=== PATIENT | female | born 1990 ===

== ENCOUNTER 2017-08-24 16:48 | Emergency (ER) | payer OTHER ==
[2017-08-24 16:48] VITALS: BMI 21.9
[2017-08-24 17:06] VITALS: TEMP 98.1
[2017-08-24] MEDS ORDERED: Promethazine 25 MG in Sodium Chloride 0.9% 50 ML IVPB STA (17:18)
[2017-08-24] MEDS ORDERED: DiphenhydrAMINE 50 mg/ml Inj IVP STA (17:18)
[2017-08-24] MEDS ORDERED: Sodium Chloride 0.9% 1,000 ML IV STA (17:18)
--- NOTE | 2017-08-24 17:23 | ED PDOC ---
HPI: Headache Time Seen by Provider: 08/24/17 17:06 Chief Complaint (Nursing): Headache Chief Complaint (Provider): MAJOR History Per: Patient History/Exam Limitations: no limitations Onset/Duration Of Symptoms: Days (2) Additional Complaint(s): Pt reports R sided MAJOR X 2 days, not relieved with Excedrin at home, feels like typical migraine but not relieved with Excedrin. MAJOR associated with photophobia and phonophobia. Denies fever, nausea, vomiting, paresthesias, weakness. - Risk Factors SAH Risk Factors: Nest Degree Relative(s) W/SAH, Polycystic Kidney Disease, Marfan's Syndrome, Douglas-Danlos Syndrome, Neurofibromatos, Type I, Sudden Onset Of Pain , Worst Headache Of Life Past Medical History Reviewed: Nursing Documentation, Vital Signs Vital Signs: Last Vital Signs Temp 98.1 F 08/24/17 17:03 Pulse 82 08/24/17 17:03 Resp 18 08/24/17 17:03 BP 117/70 08/24/17 17:03 Pulse Ox 100 08/24/17 17:03 - Medical History PMH: Asthma, Back Problems (pinched nerve in neck), Migraine Denies: Chronic Kidney Disease - Surgical History Surgical History: - Family History Family History: States: Diabetes, Hypertension - Home Medications Home Medications: Ambulatory Orders Medication Instructions Recorded Aspirin/Acetaminophen/Caffeine 2 tab PO PRN PRN 05/21/17 [Excedrin Migraine Caplet] Ondansetron [Zofran Odt] 4 mg PO Q8H PRN #15 odt 08/24/17 oxyCODONE/Acetaminophen [Percocet 1 tab PO Q6H PRN #15 tab 08/24/17 5/325 mg Tab] - Allergies Allergies/Adverse Reactions: Allergies Allergy/AdvReac Type Severity Reaction Status Date / Time No Known Allergies Allergy Verified 05/21/17 09:10 Review of Systems Constitutional: Negative for: Fever, Chills Eyes: Positive for: Other (Photophobia). Negative for: Vision Change Cardiovascular: Negative for: Chest Pain, Palpitations Respiratory: Negative for: Cough, Shortness of Breath Gastrointestinal: Negative for: Nausea, Vomiting, Abdominal Pain, Diarrhea Musculoskeletal: Negative for: Neck Pain, Back Pain Skin: Negative for: Rash, Lesions Neurological: Positive for: Headache. Negative for: Weakness, Numbness, Incoordination, Change in Speech, Confusion, Seizures, Altered Mental Status, Dizziness Physical Exam - Reviewed Nursing Documentation Reviewed: Yes Vital Signs Reviewed: Yes - Physical Exam Appears: Positive for: Uncomfortable Head Exam: Positive for: ATRAUMATIC, NORMAL INSPECTION Skin: Positive for: Normal Color, Warm, Dry Eye Exam: Positive for: Normal appearance, EOMI, PERRL Neck: Positive for: Normal, Painless ROM, Supple Cardiovascular/Chest: Positive for: Regular Rate, Rhythm Respiratory: Positive for: Normal Breath Sounds Neurologic/Psych: Positive for: Alert, 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 Negative for: Motor/Sensory Deficits, Aphasia, Facial Droop - ECG O2 Sat by Pulse Oximetry: 100 Medical Decision Making Medical Decision Makin yo female with migraine headache. - CT head - Benadryl - Phenergan - IVF Accession No. : [id number] Patient Name / ID : NEGRO TATE / [id number] Exam Date : 08/24/2017 18:16:30 ( Approved ) Study Comment : Sex / Age : F / 27Y Creator : Nicko Mcintyre MD Dictator : Nicko Mcintyre MD Operations Intern : Packing Machine Operator : Nicko Mcintyre MD Approver2 : Report Date : 08/24/2017 18:37:03 My Comment : PROCEDURE: CT HEAD WITHOUT CONTRAST. HISTORY: R sided MAJOR COMPARISON: None available. TECHNIQUE: Axial computed tomography images were obtained through the head/brain without intravenous contrast. Radiation dose: Total exam DLP = 806.62 mGy-cm. This CT exam was performed using one or more of the following dose reduction techniques: Automated exposure control, adjustment of the mA and/or kV according to patient size, and/or use of iterative reconstruction technique. FINDINGS: HEMORRHAGE: No intracranial hemorrhage. BRAIN: Normal velasquez-white matter differentiation and density are appreciated throughout the cerebrum and cerebellum with the brainstem appearing unremarkable as well. There is no mass effect. There is no suspicious extra-axial fluid collection and the midline brain anatomy appears diffusely unremarkable. VENTRICLES: Unremarkable. No hydrocephalus. CALVARIUM: Unremarkable. PARANASAL SINUSES: Unremarkable as visualized. No significant inflammatory changes. MASTOID AIR CELLS: Unremarkable as visualized. No inflammatory changes. OTHER FINDINGS: None. IMPRESSION: Unremarkable unenhanced head CT. Disposition - Clinical Impression Clinical Impression: Acute headache - Disposition Referrals: [facility] [place] [Outside] [facility] [Outside] Keiko Lemos MD [Medical Doctor] - Disposition: Routine/Home Disposition Time: 18:45 Condition: IMPROVED Prescriptions: Ondansetron [Zofran Odt] 4 mg PO Q8H PRN #15 odt PRN Reason: Nausea/Vomiting oxyCODONE/Acetaminophen [Percocet 5/325 mg Tab] 1 tab PO Q6H PRN #15 tab PRN Reason: Pain, Severe (8-10) Instructions: Acute Headache (ED) Forms: [facility] (Turkmen)
[2017-08-24] MEDS ORDERED: DiphenhydrAMINE 50 mg/ml Inj ONE (17:24)
--- NOTE | 2017-08-24 18:38 | CT ---
PROCEDURE: CT HEAD WITHOUT CONTRAST. HISTORY: R sided MAJOR COMPARISON: None available. TECHNIQUE: Axial computed tomography images were obtained through the head/brain without intravenous contrast. Radiation dose: Total exam DLP = 806.62 mGy-cm. This CT exam was performed using one or more of the following dose reduction techniques: Automated exposure control, adjustment of the mA and/or kV according to patient size, and/or use of iterative reconstruction technique. FINDINGS: HEMORRHAGE: No intracranial hemorrhage. BRAIN: Normal velasquez-white matter differentiation and density are appreciated throughout the cerebrum and cerebellum with the brainstem appearing unremarkable as well. There is no mass effect. There is no suspicious extra-axial fluid collection and the midline brain anatomy appears diffusely unremarkable. VENTRICLES: Unremarkable. No hydrocephalus. CALVARIUM: Unremarkable. PARANASAL SINUSES: Unremarkable as visualized. No significant inflammatory changes. MASTOID AIR CELLS: Unremarkable as visualized. No inflammatory changes. OTHER FINDINGS: None. IMPRESSION: Unremarkable unenhanced head CT.
[2017-08-24 18:48] VITALS: PULSE 69; RESP 16
[2017-08-24 19:17] VITALS: BP 99/60
[2017-08-31 07:33] VITALS: O2SAT 100
== END 2017-08-24 19:16 | disposition home or self-care (01) ==
LOC: H.ER 16:48
DX: R51 Headache (principal); J45.909 Unspecified asthma, uncomplicated
CPT/HCPCS: 70450; 81025; 96374; 96375; 99285; J1200; J1885; J2550; J7040

== ENCOUNTER 2018-08-08 17:58 | Emergency (ER) | payer SELFPAY ==
[2018-08-08 17:58] VITALS: BMI 21.9
[2018-08-08 18:44] VITALS: TEMP 98.7; O2SAT 100
--- NOTE | 2018-08-08 21:35 | ED PDOC ---
Upper Extremity Pain/Injury Time Seen by Provider: 08/08/18 19:10 Chief Complaint (Nursing): Upper Extremity Problem/Injury Chief Complaint (Provider): Upper Extremity Problem/Injury History Per: Patient History/Exam Limitations: no limitations Onset/Duration Of Symptoms: Days (X3) Additional Complaint(s): 28 year old female with no significant past medical history presents to the ED with right shoulder pain onset X3 days ago. Patient states that pain is getting worse radiating to her neck and down her arm. Patient states that she has pain whenever she moves her neck to the right side. Patient states that she took advil X5 hours ago with minimal relief. Patient denies shortness of breath, nausea and vomiting. PMD: None provided Past Medical History Reviewed: Historical Data, Nursing Documentation, Vital Signs Vital Signs: Last Vital Signs Temp 98.7 F 08/08/18 18:40 Pulse 76 08/08/18 18:40 Resp 17 08/08/18 18:40 BP 114/70 08/08/18 18:40 Pulse Ox 100 08/08/18 18:40 DONNELL Report Viewed: Yes - Medical History PMH: Asthma, Back Problems (pinched nerve in neck), Migraine Denies: Chronic Kidney Disease - Surgical History Surgical History: - Family History Family History: States: Diabetes, Hypertension - Social History Current smoker - smoking cessation education provided: Yes (light ) Alcohol: None Drugs: Denies - Home Medications Home Medications: Ambulatory Orders Medication Instructions Recorded Aspirin/Acetaminophen/Caffeine 2 tab PO PRN PRN 05/21/17 [Excedrin Migraine Caplet] Ondansetron [Zofran Odt] 4 mg PO Q8H PRN #15 odt 08/24/17 oxyCODONE/Acetaminophen [Percocet 1 tab PO Q6H PRN #15 tab 08/24/17 5/325 mg Tab] Cyclobenzaprine [Cyclobenzaprine 10 mg PO Q8H PRN #15 tab 08/08/18 HCl] Ibuprofen [Motrin] 600 mg PO Q6H PRN #30 tab 08/08/18 - Allergies Allergies/Adverse Reactions: Allergies Allergy/AdvReac Type Severity Reaction Status Date / Time No Known Allergies Allergy Verified 05/21/17 09:10 Review of Systems ROS Statement: Except As Marked, All Systems Reviewed And Found Negative Respiratory: Negative for: Shortness of Breath Gastrointestinal: Negative for: Nausea, Vomiting Musculoskeletal: Positive for: Neck Pain (right ), Shoulder Pain (right ), Arm Pain (raidating down right ) Physical Exam - Reviewed Nursing Documentation Reviewed: Yes Vital Signs Reviewed: Yes - Physical Exam Appears: Positive for: Well Head Exam: Positive for: ATRAUMATIC, NORMOCEPHALIC Skin: Positive for: Normal Color, Warm Eye Exam: Positive for: Normal appearance Neck: Positive for: Normal (full range of motion with some discomfort to the right) Cardiovascular/Chest: Positive for: Regular Rate, Rhythm. Negative for: Murmur Respiratory: Positive for: Normal Breath Sounds. Negative for: Respiratory Distress Gastrointestinal/Abdominal: Positive for: Normal Exam, Soft. Negative for: Tenderness Extremity: Positive for: Normal ROM (upper and Lower ), Tenderness (point tenderness to right trapezium.), Capillary Refill (less than 2 seconds), Other ( Strength to bilateral upper extremities.) Neurological/Psych: Positive for: Awake, Alert, Normal Tone. Negative for: Motor/Sensory Deficits - ECG O2 Sat by Pulse Oximetry: 100 (RA) Pulse Ox Interpretation: Normal Medical Decision Making Medical Decision Making: Time: 19:17 Initial Impression:right trapezium muscle spasm Plan: -Valium 5 mg PO -Tylenol 975 mg PO -Flexeril 10 mg PO -U preg -re-evaluate 20:37: Patient reports pain has improved but not significantly Patient reports she still feels tightness or right shoulder, valium 5mg PO added to course of treatment and will re-eval. 21:30 Patient re-evalauted at this time and reports feeling better but feels "groggy". patient advised this is due to flexeril and valium given. patient at bedside and will be taking patient home. No further work up needed ed. Patient given rx for flexeril and motrin. Patient states she understands and agrees with plan. return to ED precautions given --- Scribe Attestation: Documented by Shiloh Rowland, acting as a scribe Armida Esquivel ANP Provider Scribe Attestation: All medical record entries made by the Scribe were at my direction and personally dictated by me. I have reviewed the chart and agree that the record accurately reflects my personal performance of the history, physical exam, medical decision making, and the department course for this patient. I have also personally directed, reviewed, and agree with the discharge instructions and disposition. Disposition - Clinical Impression Clinical Impression: Trapezius muscle spasm - Patient ED Disposition Is Patient to be Admitted: No Counseled Patient/Family Regarding: Diagnosis, Rx Given - Disposition Disposition: Routine/Home Disposition Time: 21:33 Condition: IMPROVED Prescriptions: Cyclobenzaprine [Cyclobenzaprine HCl] 10 mg PO Q8H PRN #15 tab PRN Reason: Muscle Spasm Ibuprofen [Motrin] 600 mg PO Q6H PRN #30 tab PRN Reason: Pain, Moderate (4-7) Instructions: Muscle Spasms (DC) Print Language: UZBEK - POA Present On Arrival: None
[2018-08-08 21:45] VITALS: BP 118/72; PULSE 78; RESP 18
== END 2018-08-08 21:40 | disposition home or self-care (01) ==
LOC: H.ER 17:58
DX: M54.2 Cervicalgia (principal)